=== PATIENT | female | born 1940 | race Hispanic/Latino ===

== ENCOUNTER 2018-03-06 17:07 | Emergency (ER) | payer MEDICARE, BC ==
[2018-03-06 17:29] VITALS: RESP 18; O2SAT 99
--- NOTE | 2018-03-06 17:49 | ED PDOC ---
HPI: General Adult Time Seen by Provider: 03/06/18 17:32 Chief Complaint (Nursing): GI Problem Chief Complaint (Provider): Possible Allergic Reaction History Per: Patient History/Exam Limitations: no limitations Onset/Duration Of Symptoms: Hrs Current Symptoms Are (Timing): Still Present Additional Complaint(s): 77 y/o female with no significant PMHx presents to the ED after having had her flu shot at 11 o'clock this morning for further evaluation. Patient reports that at approximately 2 o'clock she started feeling chills. Patient states she has had the flu vaccine many times before and has had no problems with it. Denies sore throat, cough, vomiting and diarrhea. PMD: Domenic Estrada Past Medical History Reviewed: Historical Data, Nursing Documentation, Vital Signs Vital Signs: Last Vital Signs Temp 98.8 F 03/06/18 19:10 Pulse 106 H 03/06/18 19:10 Resp 18 03/06/18 19:10 BP 118/64 03/06/18 19:10 Pulse Ox 99 03/06/18 19:31 - Medical History PMH: No Chronic Diseases - Surgical History Surgical History: No Surg Hx - Family History Family History: States: Unknown Family Hx - Home Medications Home Medications: Ambulatory Orders Medication Instructions Recorded Simvastatin [Zocor] 20 mg PO DAILY 03/06/18 - Allergies Allergies/Adverse Reactions: Allergies Allergy/AdvReac Type Severity Reaction Status Date / Time amoxicillin Allergy RASH Verified 03/06/18 17:25 Review of Systems ROS Statement: Except As Marked, All Systems Reviewed And Found Negative Constitutional: Positive for: Fever ENT: Negative for: Throat Pain Respiratory: Negative for: Cough Gastrointestinal: Negative for: Vomiting, Diarrhea Physical Exam - Reviewed Nursing Documentation Reviewed: Yes Vital Signs Reviewed: Yes - Physical Exam Appears: Positive for: No Acute Distress (but febrile) Head Exam: Positive for: ATRAUMATIC, NORMOCEPHALIC Skin: Positive for: Normal Color, Warm, Dry Eye Exam: Positive for: Normal appearance, EOMI, PERRL ENT: Positive for: Normal ENT Inspection Neck: Positive for: Normal, Painless ROM Cardiovascular/Chest: Positive for: Tachycardia Respiratory: Positive for: Normal Breath Sounds. Negative for: Respiratory Distress Gastrointestinal/Abdominal: Positive for: Normal Exam, Soft. Negative for: Tenderness Back: Positive for: Normal Inspection Extremity: Positive for: Normal ROM. Negative for: Deformity Neurologic/Psych: Positive for: Alert, Oriented. Negative for: Motor/Sensory De ficits - Laboratory Results Result Diagrams: 03/06/18 18:00 03/06/18 18:00 - ECG O2 Sat by Pulse Oximetry: 99 (RA) Pulse Ox Interpretation: Normal Medical Decision Making Medical Decision Making: Time: 1750 Plan: -- CMP -- CBC with Differentials -- Tylenol 650 mg PO -- Blood Culture -- Influenza A B Time: 1930 Pt feels better, wants to go home. 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 Urine dip showed trace leuks, blood and ketones. Patient informed of results and instructed to drink plenty of water. Patient states she will call Dr. Estrada tomorrow and will tell him she did not wait for the UA results. Discussed with Dr. Laura Leahy after patient discharge, requests copy of labs to be faxed to her. Scribe Attestation: Documented by Bob Duncan acting as a scribe for Qing Smith MD. Provider Scribe Attestation: All medical record entries made by the Scribe were at my direction and personally dictated by me. I have reviewed the chart and agree that the record accurately reflects my personal performance of the history, physical exam, medical decision making, and the department course for this patient. I have also personally directed, reviewed, and agree with the discharge instructions and disposition. Disposition - Clinical Impression Clinical Impression: Reaction to influenza immunization - Disposition Referrals: Richardson Leahy MD [Staff Provider] - Domenic Estrada MD [Family Provider] - Disposition: Routine/Home Disposition Time: 19:31 Condition: GOOD Additional Instructions: TAKE TYLENOL NEEDED FOR FEVER. Instructions: Flu Vaccine Forms: [employer] For A Kid! (Arabic)
[2018-03-06 18:09] LABS: BASO # 0.1 K/uL (0.0-0.2); BASO % 0.8 % (0.0-2.0); EOS % 0.2 % (0.0-4.0); HEMOGLOBIN 11.9 g/dL (12.0-16.0); LYMPH # 8.7 K/uL (1.0-4.3); LYMPH % 59.6 % (20.0-40.0); MEAN CELL VOLUME 92.4 fl (81.0-99.0); MEAN CORPUSCULAR HEMOGLOBIN 31.6 pg (27.0-31.0); MEAN CORPUSCULAR HGB CONC 34.2 g/dL (33.0-37.0); MEAN PLATELET VOLUME 7.7 fl (7.2-11.7); MONO # 0.2 K/uL (0.0-0.8); MONO % 1.2 % (0.0-10.0); NEUT # 5.6 K/uL (1.8-7.0); NEUT % 38.2 % (50.0-75.0); NRBC % 0.1 % (0.0-0.0); RBC 3.78 Mil/uL (3.80-5.20); RED CELL DISTRIBUTION WIDTH 13.9 % (11.5-14.5); WHITE BLOOD COUNT 14.6 K/uL (4.8-10.8)
[2018-03-06 18:17] LABS: ALB/GLOB RATIO 1.2 (1.0-2.1); ALBUMIN 4.3 g/dL (3.5-5.0); ALT/SGPT 27 U/L (9-52); AST/SGOT 38 U/L (14-36); BLOOD UREA NITROGEN 21 mg/dl (7-17); CALCIUM 9.8 mg/dL (8.4-10.2); GFR NON-AFRICAN AMERICAN > 60
[2018-03-06 19:34] VITALS: BP 118/64; PULSE 106; TEMP 98.8
[2018-03-06 19:41] LABS: SQUAMOUS EPITHIAL < 1 /hpf (0-5); URINE BACTERIA RARE (<OCC); URINE BILIRUBIN NEGATIVE (NEGATIVE); URINE BLOOD SMALL (NEGATIVE); URINE CLARITY SLIGHTY-CLOUDY (Clear); URINE COLOR YELLOW (YELLOW); URINE GLUCOSE (UA) NEG (Normal); URINE LEUKOCYTE ESTERASE TRACE Leu/uL (Negative); URINE PROTEIN NEGATIVE (NEGATIVE); URINE UROBILINOGEN 0.2-1.0 mg/dL (0.2-1.0)
== END 2018-03-06 19:30 | disposition home or self-care (01) ==
LOC: H.ER 17:07
DX: R50.83 Postvaccination fever (principal)